=== PATIENT | male | born 2000 | race Caucasian/White ===

== ENCOUNTER → 2025-06-17 08:42 | Outpatient (CLI) | payer OTHER, SELFPAY ==
--- NOTE | 2025-06-17 08:46 | DI.MRI.S_ITS ---
PROCEDURE: MR HEAD/BRAIN WO/W CON INDICATIONS: AMNESIA TECHNIQUE: Noncontrast axial T1 spin echo, axial T2 fast spin echo, sagittal and axial FLAIR, coronal T2 fast spin echo, axial gradient echo, axial diffusion and ADC through the brain. After the administration of contrast, axial and coronal and sagittal 3D VIBE or T1 spin echo with fat saturation through the brain. COMPARISON: None. FINDINGS: CSF Spaces: Basal cisterns are patent. No extra-axial fluid collections. Ventricles are normal in size and shape. Brain: No intracranial masses or hemorrhage. Shelley/white matter interface is normal. Brainstem appears normal. Diffusion-weighted sequence is unremarkable without evidence of acute infarct. Normal intravascular flow voids are present. Skull and face: Calvarial marrow is normal in signal. Orbits appear normal. Sinuses: Sinuses and mastoids appear clear. IMPRESSION: Normal MRI of the brain Approved by: Aaron Covarrubias M.D. on 06/17/2025 at 14:00
== END ==
DX: R41.3 Other amnesia (principal)
CPT/HCPCS: 70553; A9579